=== PATIENT | female | born 1970 | race American Indian/Alaskan Native ===

== ENCOUNTER 2019-11-19 10:23 | Emergency (ER) | payer MEDICAID ==
--- NOTE | 2019-11-19 10:57 | Emergency Department Report ---
<ABHINAV CAZARES - Last Filed: 11/19/19 10:52> ED Psych HPI - General Chief Complaint: Psych Stated Complaint: SUICIDAL OVERDOSE Time Seen by Provider: 11/19/19 10:43 Source: patient, EMS Mode of arrival: Stretcher Limitations: No Limitations - History of Present Illness Initial Comments: CC: "I just need to go to a hospital." HPI: Mrs. Machuca is a 49 yo female with hx of schizophrenia, bipolar disorder, asthma, COPD, cocaine dependence who presents with suicidal ideation. She had an intentional drug overdose. She took 6 tablets of baclofen this morning at 4 AM. She is severely depressed. She denies any other coingestants. She has been without mental health care for 2 years. She has not taking psychiatric medications in 2 years. She denies any pain. She used marijuana and cocaine last night. Patient lives with his niece. She receives disability income payments. Her PCP is Dr. Ulloa in [facility]. She does not have a psychiatrist. MD Complaint: suicidal ideation, feels depressed -: days(s) (1) Associated Psychiatric Symptoms: depression, suicidal ideation Quality: constant Improves With: none Worsens With: none Context: recent drug abuse, not taking psychiatric Associated Symptoms: denies other symptoms If Self Harm: intentional overdose - Related Data Previous Rx's Medication Instructions Recorded Last Taken Type FLUoxetine HCL [Prozac] 10 mg PO DAILY #30 capsule 11/20/19 Unknown Rx Nicotine [Habitrol] 21 mg TD DAILY #30 patch 11/20/19 Unknown Rx risperiDONE [RisperDAL] 0.5 mg PO BID #60 tablet 11/20/19 Unknown Rx traZODone [Desyrel] 50 mg PO QHS #30 tab 11/20/19 Unknown Rx Allergies Allergy/AdvReac Type Severity Reaction Status Date / Time aspirin Allergy Unknown Verified 11/19/19 10:51 ED Review of Systems Comment: All other systems reviewed and negative Constitutional: denies: fever, malaise Respiratory: denies: cough, shortness of breath Gastrointestinal: denies: abdominal pain, nausea, vomiting Psychiatric: depression, suicidal thoughts ED Past Medical Hx - Past Medical History Previous Medical History?: Yes Hx Psychiatric Treatment: Yes Hx Asthma: Yes Hx COPD: Yes Additional medical history: Schizophrenia, bipolar - Surgical History Past Surgical History?: No - Social History Smoking Status: Current Every Day Smoker Substance Use Type: Cocaine, Marijuana - Medications Home Medications: Home Medications Medication Instructions Recorded Confirmed Last Taken Type FLUoxetine HCL [Prozac] 10 mg PO DAILY #30 capsule 11/20/19 Unknown Rx Nicotine [Habitrol] 21 mg TD DAILY #30 patch 11/20/19 Unknown Rx risperiDONE [RisperDAL] 0.5 mg PO BID #60 tablet 11/20/19 Unknown Rx traZODone [Desyrel] 50 mg PO QHS #30 tab 11/20/19 Unknown Rx ED Physical Exam - General Limitations: No Limitations General appearance: alert, in no apparent distress, other (Tearful, crying) - Head Head exam: Present: atraumatic, normocephalic - Eye Eye exam: Present: normal appearance - ENT ENT exam: Present: mucous membranes moist - Neck Neck exam: Present: normal inspection, full ROM - Respiratory Respiratory exam: Present: normal lung sounds bilaterally. Absent: respiratory distress, wheezes, rales, rhonchi - Cardiovascular Cardiovascular Exam: Present: regular rate, normal rhythm, normal heart sounds. Absent: systolic murmur, diastolic murmur, rubs, gallop - GI/Abdominal GI/Abdominal exam: Present: soft, normal bowel sounds. Absent: distended, tenderness, guarding, rebound - Extremities Exam Extremities exam: Present: normal inspection - Neurological Exam Neurological exam: Present: alert, oriented X3 - Psychiatric Psychiatric exam: Present: depressed, suicidal ideation - Skin Skin exam: Present: warm, dry, intact, normal color. Absent: rash ED Medical Decision Making - Medical Decision Making Ms. Machuca is a 49-year-old female with history of bipolar disorder, schizophrenia, asthma, COPD, cocaine dependence who presents with suicide attempt. Intentional overdose of baclofen 6 hours prior to presentation. The amount "6 pills" ingested is nontoxic. She does not have any physical symptoms to significant ingestion or coingestants. Acetaminophen and salicylate levels are negative. Patient is medically clear for psychiatric care. Involuntary hold with 1013 for instituted ED Disposition Clinical Impression: Suicide attempt, Intentional drug overdose, Bipolar disorder, Schizophrenia, Cocaine dependence Disposition: DC-01 TO HOME OR SELFCARE Condition: Stable Instructions: Suicide Prevention for Adults (ED), Effects of Smoking, Alcohol, and Drugs on (ED), Polysubstance Abuse (ED), Bipolar Disorder (ED), Schizophrenia (ED) Additional Instructions: Outpatient COMMUNITY Behavioral Health Resources: [facility] ([facility]) [address] [place] [address] / [phone] Monday thru Monday - 8am - 5pm [facility] Address: [address] [place] [address] Monday thru Monday- 7am-2pm [facility] Address: [address] [place] [address] Monday thru Monday: 8:30AM-5PM CRISIS RESOURCES [place] Crisis Line: Suicide Prevention Line: Crisis Text Line: Text START to 915675 Emergency: 911 In case of an emergency, please contact the following numbers: [place] Crisis and Access Line: Number: Crisis Text Line: (Text START) Number: 207060 Suicide Prevention Line: Number: Emergency Number: 911 SUBSTANCE ABUSE PROGRAMS: [facility]: Location: [place], [place] [facility] Address: [address] [place] [address] [facility]: Address: [address] [place] [address] [facility]: Address: [address] [place] [address] [facility] Community: Address: [address] [place] [address] [facility] Address: [address] [place] [address]. Please contact above numbers to attempt placement into free based program. Medicaid Programs: [facility]: Address: [address] [place] [address] [facility]: Address: [address] [place] [id number] Prescriptions: traZODone [Desyrel] 50 mg PO QHS #30 tab Nicotine [Habitrol] 21 mg TD DAILY #30 patch FLUoxetine HCL [Prozac] 10 mg PO DAILY #30 capsule risperiDONE [RisperDAL] 0.5 mg PO BID #60 tablet Referrals: PRIMARY CARE, [Primary Care Provider] - 3-5 Days [facility] [Provider Group] - 3-5 Days <JOESPH DUVAL - Last Filed: 11/20/19 14:24> ED Review of Systems ROS: Stated complaint: SUICIDAL OVERDOSE Other details as noted in HPI ED Course Vital Signs 11/19/19 11/19/19 11/19/19 11:01 12:43 16:43 Temperature 97.9 F 97.9 F 98.2 F Pulse Rate 53 L 63 98 H Respiratory 18 18 Rate Blood Pressure 121/72 165/99 148/81 [Left] O2 Sat by Pulse 100 99 Oximetry 11/19/19 11/20/19 19:58 02:00 Temperature 98.2 F 98.7 F Pulse Rate 55 L 56 L Respiratory 19 18 Rate Blood Pressure 100/50 118/60 [Left] O2 Sat by Pulse 100 100 Oximetry ED Medical Decision Making - Lab Data Result diagrams: 11/19/19 11:01 11/19/19 11:01 - Medical Decision Making PER MENTAL HEALTH CONSULT Assessment Bipolar Disorder Cocaine Use Disorder Substance Induced Mood Disorder Plan D/c 1013 Risperidone 0.5mg po BID Prozac 10mg po daily Trazodone 50mg po qhs Nicotine patch 21mg daily Please give first dose of meds prior to discharge Sitter: Defer to primary Medical: Per primary Disposition: Do not Recommend acute inpatient treatment. The patient understands that if suicide thoughts or tendencies are to arise she is to seek immediate assistance, including but not limited to the crisis hotline, 911/ER The patient is to abstain from all illicit drug use. The personal property assessor is to further discuss safety plan, give resources for outpatient psych, cognitive behavioral therapy, and drug rehabilitation programs. Will sign off. Thank you for this consult. Critical care attestation.: If time is entered above; I have spent that time in minutes in the direct care of this critically ill patient, excluding procedure time. ED Disposition Is pt being admited?: No Does the pt Need Aspirin: No Time of Disposition: 14:23
[2019-11-19 11:46] LABS: Basophils # (Auto) 0.1 K/mm3 (0.0-0.1); Basophils % (Auto) 0.9 % (0.0-1.8); Eosinophils % (Auto) 0.3 % (0.0-4.3); Hematocrit 36.5 % (30.3-42.9); Hemoglobin 12.2 gm/dl (10.1-14.3); Lymphocytes # (Auto) 2.9 K/mm3 (1.2-5.4); Lymphocytes % (Auto) 24.7 % (13.4-35.0); Mean Corpuscular HGB Conc 33 % (30-34); Mean Corpuscular Volume 85 fl (79-97); Monocytes # (Auto) 0.8 K/mm3 (0.0-0.8); Monocytes % (Auto) 7.2 % (0.0-7.3); Platelet Count 350 K/mm3 (140-440); Red Blood Count 4.29 M/mm3 (3.65-5.03); Red Cell Distribution Width 17.2 % (13.2-15.2)
[2019-11-19 11:59] LABS: Blood Urea Nitrogen 17 mg/dL (7-17); Hemolysis Index 6
[2019-11-19 12:07] LABS: BUN/Creatinine Ratio 28
[2019-11-19 17:43] LABS: Amphetamine Screen,Urine PRESUMPTIVE POSITIVE; Benzodiazepines Screen,Urine PRESUMPTIVE NEGATIVE; Cannabinoid Screen,Urine PRESUMPTIVE POSITIVE; Cocaine Screen,Urine PRESUMPTIVE POSITIVE; Methadone Screen,Urine PRESUMPTIVE NEGATIVE; Opiate Screen,Urine PRESUMPTIVE NEGATIVE
[2019-11-19 17:48] LABS: Bilirubin,Urine NEG (Negative); Blood,Urine LG (Negative); Color,Urine Yellow (Yellow); Mucus,Urine 3+ /HPF; Protein,Urine <15 mg/dL mg/dL (Negative); Urobilinogen,Urine < 2.0 mg/dL (<2.0); WBC,Urine < 1.0 /HPF (0.0-6.0)
--- NOTE | 2019-11-20 13:18 | Consultation ---
History of Present Illness - Reason for Consult Consult date: 11/20/19 Reason for consult: SI - History of Present Psychiatric Illness Eli Machuca is a 49y/o female patient who presented to the ER with suicidal ideation who states she took "six pills." During my interview with the patient today, she is a/o x 3. She is calm and cooperative. She is pleasant. The patient says she has "been off meds for about two years." She says "that's why I've been feeling like this." She then says "but I actually feel much better today." The patient denies SI/HI. She says "ma'am if I really wanted to hurt myself I would have taken more than six little pills." She says "but I bet I want ever do it again." She then laughs. She denies any hallucinations or fear of endangerment. PAST PSYCHIATRIC HISTORY Diagnoses: Bipolar, schizophrenia Suicide attempts or Self-harm behavior: Denies Prior psychiatric hospitalizations: Denies Substance Abuse history: Cocaine, nicotine Previous psychiatric medications tried: Risperidone, prozac, trazodone Outpatient treatment: not in two years PAST MEDICAL HISTORY: None reported Family Psychiatric History: None reported or documented SOCIAL HISTORY Marital Status: Single Living Arrangements: with niece Employment Status: Disabled Access to guns/weapons: Denies Education: History of Abuse: Denies Legal History: Denies EVIEW OF SYSTEMS Constitutional: Negative for weight loss ENT: Negative for stridor Respiratory: Negative for cough or hemoptysis All other systems reviewed and are negative MENTAL STATUS EXAMINATION General Appearance and Behavior: Age appropriate, wearing appropriate clothes, calm and cooperative Mood: "much better" Affect and affective range: congruent with mood Thought Process: Goal directed Thought Content: Denies Speech: Normal volume, Regular rate and rhythm Suicidal Ideation: Denies Homicidal Ideation: Denies Hallucinations: Denies Delusions: None elicited Impulse Control: normal Insight and Judgment: Limited Memory/Cognition: Normal Attention: Normal Orientation: Alert, oriented Assessment Bipolar Disorder Cocaine Use Disorder Substance Induced Mood Disorder Plan D/c 1013 Risperidone 0.5mg po BID Prozac 10mg po daily Trazodone 50mg po qhs Nicotine patch 21mg daily Please give first dose of meds prior to discharge Sitter: Defer to primary Medical: Per primary Disposition: Do not Recommend acute inpatient treatment. The patient understands that if suicide thoughts or tendencies are to arise she is to seek immediate assistance, including but not limited to the crisis hotline, 911/ER The patient is to abstain from all illicit drug use. The flight readiness technician is to further discuss safety plan, give resources for outpatient psych, cognitive behavioral therapy, and drug rehabilitation programs. Will sign off. Thank you for this consult. Medications and Allergies Allergies Allergy/AdvReac Type Severity Reaction Status Date / Time aspirin Allergy Unknown Verified 11/19/19 10:51 Home Medications Medication Instructions Recorded Confirmed Last Taken Type FLUoxetine HCL [Prozac] 10 mg PO DAILY #30 capsule 11/20/19 Unknown Rx Nicotine [Habitrol] 21 mg TD DAILY #30 patch 11/20/19 Unknown Rx risperiDONE [RisperDAL] 0.5 mg PO BID #60 tablet 11/20/19 Unknown Rx traZODone [Desyrel] 50 mg PO QHS #30 tab 11/20/19 Unknown Rx Mental Status Exam - Vital signs Last Vital Signs Temp 98.7 F 11/20/19 02:00 Pulse 56 L 11/20/19 02:00 Resp 18 11/20/19 02:00 BP 118/60 11/20/19 02:00 Pulse Ox 100 11/20/19 02:00 Results Result Diagrams: 11/19/19 11:01 11/19/19 11:01 Abnormal lab results 11/19/19 Range/Units 11:01 Carbon Dioxide 20 L (22-30) mmol/L All other labs normal.
[2019-11-20] MEDS ORDERED: risperiDONE 0.25 MG TAB PO ONE (14:00)
[2019-11-20] MEDS ORDERED: FLUoxetine 10 MG TAB PO ONE (14:00)
[2019-11-20] MEDS ORDERED: NICOTINE 21 MG/24 HR PATCH TD ONE (14:29)
[2019-11-20 16:18] VITALS: BP 136/82
== END 2019-11-20 15:00 | disposition home or self-care (01) ==
LOC: ED 10:23
DX: T42.8X2A Poisoning by antiparkinsonism drugs and other central muscle-tone depressants, intentional self-harm, initial encounter (principal); F20.9 Schizophrenia, unspecified; F31.9 Bipolar disorder, unspecified; F14.10 Cocaine abuse, uncomplicated; J44.9 Chronic obstructive pulmonary disease, unspecified; F17.200 Nicotine dependence, unspecified, uncomplicated; F12.10 Cannabis abuse, uncomplicated; Z79.899 Other long term (current) drug therapy; Z88.6 Allergy status to analgesic agent; Y92.89 Other specified places as the place of occurrence of the external cause
CPT/HCPCS: 36415; 80048; 80307; 81001; 85025; 99285; U0003; 80320; G0480

== ENCOUNTER 2020-10-23 17:04 | Emergency (ER) | payer MEDICAID ==
[2020-10-23 17:32] VITALS: BP 150/80
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
--- NOTE | 2020-10-23 18:02 | XRay Report ---
LEFT FOOT 3 VIEWS INDICATION / CLINICAL INFORMATION: Trauma with left foot pain. COMPARISON: None available. FINDINGS: BONES / JOINT(S): There is an acute, oblique mildly comminuted fracture of the shaft of the proximal phalanx of the fourth toe. Mild displacement of the fracture fragments is noted. No dislocation. Ther e is a small plantar calcaneal spur. SOFT TISSUES: No significant abnormality. ADDITIONAL FINDINGS: None. IMPRESSION: Acute fracture of the proximal phalanx of the left fourth toe. Signer Name: Benji [place] MD Signed: 10/23/2020 5:58 PM Workstation Name: [id number]
== END 2020-10-23 18:29 | disposition home or self-care (01) ==
LOC: ED 17:04
DX: M79.672 Pain in left foot (principal); F17.200 Nicotine dependence, unspecified, uncomplicated; F14.10 Cocaine abuse, uncomplicated; F12.10 Cannabis abuse, uncomplicated; F31.9 Bipolar disorder, unspecified; F20.9 Schizophrenia, unspecified; Y08.89XA Assault by other specified means, initial encounter; Y93.89 Activity, other specified; Y92.89 Other specified places as the place of occurrence of the external cause; Y99.8 Other external cause status
CPT/HCPCS: 99283

== ENCOUNTER 2020-12-21 16:24 | Emergency (ER) | payer MEDICAID ==
[2020-12-21] MEDS ORDERED: SODIUM CHLORIDE 0.9% 1000 ML 1,000 ML IV ONE (17:18)
[2020-12-21] MEDS ORDERED: ONDANSETRON 4 MG/2 ML INJ IV ONE (17:18)
[2020-12-21] MEDS ORDERED: MORPHINE 4 MG/1 ML INJ IV ONE (17:18)
--- NOTE | 2020-12-21 17:20 | Emergency Department Report ---
HPI - General Chief Complaint: Abdominal Pain Time Seen by Provider: 12/21/20 17:00 - HPI HPI: This is a 50-year-old -[place] female presents to the emergency department with complaint of generalized abdominal pain, nausea with vomiting, and some diarrhea, after eating a [employer] hamburger on Monday, 2 days ago. The patient denies any past medical history. Currently she says that her abdominal pain is 8 out of 10 in intensity. No known aggravating or alleviating factors. No recent travel or sick contacts at home. She denies any fever, dysuria, vaginal bleeding or discharge, chest pain, shortness of breath. ED Past Medical Hx - Past Medical History Hx Psychiatric Treatment: Yes Hx Asthma: Yes Hx COPD: Yes Additional medical history: Schizophrenia, bipolar - Social History Smoking Status: Current Every Day Smoker Substance Use Type: Cocaine, Marijuana - Medications Home Medications: Home Medications Medication Instructions Recorded Confirmed Last Taken Type FLUoxetine HCL [Prozac] 10 mg PO DAILY #30 capsule 11/20/19 Unknown Rx Nicotine [Habitrol] 21 mg TD DAILY #30 patch 11/20/19 Unknown Rx risperiDONE [RisperDAL] 0.5 mg PO BID #60 tablet 11/20/19 Unknown Rx traZODone [Desyrel] 50 mg PO QHS #30 tab 11/20/19 Unknown Rx HYDROcodone/APAP 5-325 [Speer 1 each PO Q6HR PRN #8 tablet 10/23/20 Unknown Rx 5/325] ED Review of Systems ROS: Stated complaint: ABD PAIN Other details as noted in HPI Comment: All other systems reviewed and negative Constitutional: denies: chills, fever Eyes: denies: eye pain, vision change ENT: denies: ear pain, throat pain Respiratory: denies: cough, shortness of breath Cardiovascular: denies: chest pain, palpitations Gastrointestinal: abdominal pain, nausea, vomiting, diarrhea Genitourinary: denies: dysuria, discharge Musculoskeletal: denies: joint swelling, arthralgia Skin: denies: rash, lesions Neurological: denies: headache, weakness Physical Exam - Physical Exam Physical Exam: GENERAL: The patient is well-developed well-nourished. HENT: Normocephalic. Atraumatic. Patient has moist mucous membranes. EYES: Extraocular motions are intact. NECK: Supple. Trachea is midline. CHEST/LUNGS: Clear to auscultation. There is no respiratory distress noted. HEART/CARDIOVASCULAR: Regular. There is no tachycardia. There is no murmur. ABDOMEN: Abdomen is soft. Generalized abdominal tenderness to palpation. Patient has normal bowel sounds. There is no abdominal distention. SKIN: Skin is warm and dry. NEURO: The patient is awake, alert, and oriented. The patient is cooperative. The patient has no focal neurologic deficits. Normal speech. MUSCULOSKELETAL: There is no tenderness or deformity. There is no limitation range of motion. ED Medical Decision Making - Lab Data Result diagrams: 12/21/20 18:15 12/21/20 18:15 Lab Results 12/21/20 12/21/20 12/21/20 Range/Units 18:15 18:15 19:02 WBC 9.4 (4.5-11.0) K/mm3 RBC 3.91 (3.65-5.03) M/mm3 Hgb 10.1 (10.1-14.3) gm/dl Hct 32.3 (30.3-42.9) % MCV 83 (79-97) fl MCH 26 L (28-32) pg MCHC 31 (30-34) % RDW 15.8 H (13.2-15.2) % Plt Count 418 (140-440) K/mm3 Lymph % (Auto) 40.6 H (13.4-35.0) % [place] % (Auto) 10.0 H (0.0-7.3) % Eos % (Auto) 2.8 (0.0-4.3) % Baso % (Auto) 0.6 (0.0-1.8) % Lymph # (Auto) 3.8 (1.2-5.4) K/mm3 [place] # (Auto) 0.9 H (0.0-0.8) K/mm3 Eos # (Auto) 0.3 (0.0-0.4) K/mm3 Baso # (Auto) 0.1 (0.0-0.1) K/mm3 Seg Neutrophils % 46.0 (40.0-70.0) % Seg Neutrophils # 4.3 (1.8-7.7) K/mm3 Sodium 137 (137-145) mmol/L Potassium 4.3 (3.6-5.0) mmol/L Chloride 101.7 (98-107) mmol/L Carbon Dioxide 24 (22-30) mmol/L Anion Gap 16 mmol/L BUN 8 (7-17) mg/dL Creatinine 0.5 L (0.6-1.2) mg/dL Estimated GFR > 60 ml/min BUN/Creatinine Ratio 16 % Glucose 91 (65-100) mg/dL Calcium 8.7 (8.4-10.2) mg/dL Total Bilirubin < 0.20 (0.1-1.2) mg/dL Direct Bilirubin < 0.2 (0-0.2) mg/dL Indirect Bilirubin 0.0 mg/dL AST 18 (5-40) units/L ALT 17 (7-56) units/L Alkaline Phosphatase 67 (35-129) units/L Total Protein 6.6 (6.3-8.2) g/dL Albumin 4.0 (3.9-5) g/dL Albumin/Globulin Ratio 1.5 % Lipase 12 L (13-60) units/L Urine Color Yellow (Yellow) Urine Turbidity Slightly-cloudy (Clear) Urine pH 6.0 (5.0-7.0) Ur Specific [place] 1.029 (1.003-1.030) Urine Protein 30 mg/dl (Negative) mg/dL Urine Glucose (UA) Neg (Negative) mg/dL Urine Ketones Neg (Negative) mg/dL Urine Blood Neg (Negative) Urine Nitrite Neg (Negative) Urine Bilirubin Neg (Negative) Urine Urobilinogen 4.0 (<2.0) mg/dL Ur Leukocyte Esterase Neg (Negative) Urine WBC (Auto) 2.0 (0.0-6.0) /HPF Urine RBC (Auto) 6.0 (0.0-6.0) /HPF U Epithel Cells (Auto) 21.0 H (0-13.0) /HPF Urine Mucus 3+ /HPF - Medical Decision Making This patient presents to the emergency department with complaint of generalized abdominal pain, nausea and vomiting. On examination she has reproducible abdominal tenderness to palpation. The abdomen is soft, nondistended. Labs have been mostly unremarkable thus far including CBC, metabolic panel, urinalysis, lipase. She was given IV analgesia and an antiemetic. Prior to the labs resulting, I went to reevaluate the patient after she was medicated and the patient suddenly appears very antsy. I explained to her that given her level of abdominal discomfort that I was going to order a CT scan of the abdomen and pelvis. The patient says that she does not want a wait for her laboratory results, nor does she want to have an CT scan done. I explained to the patient that without the CT scan, there may be an undiagnosed condition or infection causing her abdominal pain. I explained that the patient could have certain infections or conditions that could be life-threatening or a surgical emergency. If she leaves at this time the patient could end up having increased abdominal pain, necrotic bowel, septic abdomen, or could even . Patient is awake, a lert, oriented and has a normal decision-making capacity. Therefore, despite understanding the risks, the patient has decided to sign out AGAINST MEDICAL ADVICE and has signed the AMA form. She understands that she can return to the emergency department for further evaluation of her abdominal pain, or with any acute distress. Critical Care Time: No Critical care attestation.: If time is entered above; I have spent that time in minutes in the direct care of this critically ill patient, excluding procedure time. ED Disposition Clinical Impression: Abdominal pain Qualifiers: Abdominal location: unspecified location Qualified Code(s): R10.9 - Unspecified abdominal pain Nausea & vomiting Qualifiers: Vomiting type: unspecified Vomiting Intractability: non-intractable Qualified Code(s): R11.2 - Nausea with vomiting, unspecified Disposition: 07 LEFT AGAINST MEDICAL ADVICE Is pt being admited?: No Instructions: Abdominal Pain, Adult, Abdominal Pain (ED) Additional Instructions: Return to the emergency department if you change your mind about further evaluation and treatment of your abdominal pain, or with any acute distress. Forms: AMA Form Time of Disposition: 19:02
[2020-12-21 18:42] LABS: Basophils # (Auto) 0.1 K/mm3 (0.0-0.1); Basophils % (Auto) 0.6 % (0.0-1.8); Eosinophils # (Auto) 0.3 K/mm3 (0.0-0.4); Eosinophils % (Auto) 2.8 % (0.0-4.3); Hematocrit 32.3 % (30.3-42.9); Hemoglobin 10.1 gm/dl (10.1-14.3); Lymphocytes # (Auto) 3.8 K/mm3 (1.2-5.4); Lymphocytes % (Auto) 40.6 % (13.4-35.0); Mean Corpuscular HGB Conc 31 % (30-34); Mean Corpuscular Volume 83 fl (79-97); Monocytes # (Auto) 0.9 K/mm3 (0.0-0.8); Platelet Count 418 K/mm3 (140-440); Red Blood Count 3.91 M/mm3 (3.65-5.03); Red Cell Distribution Width 15.8 % (13.2-15.2)
[2020-12-21 19:08] LABS: Alanine Aminotransferase 17 units/L (7-56); Blood Urea Nitrogen 8 mg/dL (7-17); Calcium 8.7 mg/dL (8.4-10.2); Hemolysis Index 10
[2020-12-21 19:20] LABS: BUN/Creatinine Ratio 16; Bilirubin,Direct < 0.2 mg/dL (0-0.2)
[2020-12-21 19:37] LABS: Color,Urine Yellow (Yellow)
[2020-12-21 19:38] LABS: Bilirubin,Urine NEG (Negative); Blood,Urine NEG (Negative); Mucus,Urine 3+ /HPF
== END 2020-12-22 02:38 | disposition left against medical advice (07) ==
LOC: ED 16:24
DX: R10.84 Generalized abdominal pain (principal); R11.2 Nausea with vomiting, unspecified; R19.7 Diarrhea, unspecified; J44.9 Chronic obstructive pulmonary disease, unspecified; F20.9 Schizophrenia, unspecified; F31.9 Bipolar disorder, unspecified; F17.200 Nicotine dependence, unspecified, uncomplicated; F14.90 Cocaine use, unspecified, uncomplicated; F12.90 Cannabis use, unspecified, uncomplicated; Z88.6 Allergy status to analgesic agent
CPT/HCPCS: 36415; 80048; 80076; 81001; 83690; 85025; 96361; 96374; 96375; 99283; J2270; J2405; J7030; Q0162

== ENCOUNTER 2021-01-22 18:36 | Emergency (ER) | payer MEDICAID ==
[2021-01-22 18:45] VITALS: BP 146/72
== END 2021-01-22 20:00 | disposition left against medical advice (07) ==
LOC: ED 18:36
DX: M54.9 Dorsalgia, unspecified (principal); Z53.21 Procedure and treatment not carried out due to patient leaving prior to being seen by health care provider

== ENCOUNTER 2021-02-19 14:49 | Emergency (ER) | payer MEDICAID ==
[2021-02-19 14:59] VITALS: BP 120/75
== END 2021-02-19 15:36 | disposition left against medical advice (07) ==
LOC: ED 14:49
DX: R52 Pain, unspecified (principal); Z53.21 Procedure and treatment not carried out due to patient leaving prior to being seen by health care provider

== ENCOUNTER 2021-02-19 17:27 | Emergency (ER) | payer MEDICAID ==
[2021-02-19 17:47] VITALS: BP 126/71
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
== END 2021-02-19 17:45 | disposition left against medical advice (07) ==
LOC: ED 17:27
DX: R07.81 Pleurodynia (principal); Z53.21 Procedure and treatment not carried out due to patient leaving prior to being seen by health care provider